=== PATIENT | female | born 1945 | race Caucasian/White ===

== ENCOUNTER → 2017-06-18 | Day surgery (SDC) | payer MEDICARE, BC ==
[~2017-06-18] MED LIST: Lactated Ringers 500 ML IV SCH; Propofol 200 MG/20 ML SDV IV ONE
--- NOTE | 2017-06-18 10:58 | OR ---
DATE OF OPERATION: 06/18/2017 PREOPERATIVE DIAGNOSIS: 1. ABDOMINAL PAIN. 2. HISTORY OF POLYPS. POSTOPERATIVE DIAGNOSIS: 1. ABDOMINAL PAIN. 2. HISTORY OF POLYPS. SURGEON: Chuck Davis MD PROCEDURE: FULL-LENGTH COLONOSCOPY. ANESTHESIA: [employer], due to chronic GERD, hypertension, and Raynaud disease. COMPLICATIONS: None. SPECIMEN: None. FINDINGS: Normal full-length colonoscopy. RECOMMENDATIONS: Medical followup with Dr. Sandoval. INDICATIONS: The patient was in for routine physical. She has been having some abdominal pain. Dr. Sandoval, because of the patient's history of polyps sent her for colonoscopy. DESCRIPTION OF PROCEDURE: The patient was prepped and draped, placed in the left lateral decubitus position. A lubricated Olympus colonoscope was inserted and easily advanced to the cecum. Direct visualization of the ileocecal valve and appendiceal orifice was accomplished. The bowel prep was adequate. Upon withdrawal of the scope, throughout the entire length of the colon, I could find no signs of any polyps, masses, ulcerations, or bleeding sites. There were no vascular abnormalities or signs of colitis. No significant diverticula were found. The rectal vault was benign. Retroflexion of the scope showed some perianal skin tags. Otherwise, unremarkable. Air was then suctioned. Scope removed without complication. NICHOLAS/MONICO /[id number]
== END ==
LOC: CC.SDS 07:51
PROVIDERS: ATTEND Family Medicine
DX: K64.4 Residual hemorrhoidal skin tags (principal); K21.9 Gastro-esophageal reflux disease without esophagitis; I10 Essential (primary) hypertension; I73.00 Raynaud's syndrome without gangrene; Z86.010 Personal history of colon polyps; Z91.018 Allergy to other foods; Z91.013 Allergy to seafood; Z90.710 Acquired absence of both cervix and uterus; Z90.722 Acquired absence of ovaries, bilateral; Z79.818 Long term (current) use of other agents affecting estrogen receptors and estrogen levels; Z79.899 Other long term (current) drug therapy
CPT/HCPCS: 45378; J2704; J7120; 00810

== ENCOUNTER → 2022-07-31 | Day surgery (SDC) | payer MEDICARE, BC ==
[~2022-07-31] MED LIST changes: -Lactated Ringers 500 ML IV SCH; +Lidocaine 1% 30 ML SDV SUBCUT ONE; +Lidocaine 1% w/EPINEPHrine 100 ML, Sodium Chloride 0.9% 900 ML, Sodium Bicarbonate 10 MEQ INJECT ONE; -Propofol 200 MG/20 ML SDV IV ONE
== END ==
LOC: CC.SDS 12:33
PROVIDERS: ATTEND Family Medicine
DX: I83.92 Asymptomatic varicose veins of left lower extremity (principal); M19.90 Unspecified osteoarthritis, unspecified site; F32.A Depression, unspecified; K21.9 Gastro-esophageal reflux disease without esophagitis; E78.5 Hyperlipidemia, unspecified; I10 Essential (primary) hypertension; E03.9 Hypothyroidism, unspecified; M85.80 Other specified disorders of bone density and structure, unspecified site; R73.03 Prediabetes; E55.9 Vitamin D deficiency, unspecified; Z98.890 Other specified postprocedural states; Z79.899 Other long term (current) drug therapy; Z90.49 Acquired absence of other specified parts of digestive tract
CPT/HCPCS: A4216; J7030